=== PATIENT | female | born 1985 | race African-American/Black ===

== ENCOUNTER 2016-06-09 00:02 | Emergency (ER) | payer MEDICAID, OTHER ==
[~2016-06-09] VITALS: Ht 160 cm; Wt 91.5 kg
[~2016-06-09 00:02] MED LIST: HYDR25TA5 PO; TRAM50TA PO
[2016-06-09 00:03] VITALS: BP 170/100; TEMP 98.4; O2SAT 98
[2016-06-09] MEDS ORDERED: CYCLOBENZAPRINE HCL 10 MG TAB PO ONE (01:15)
[2016-06-09] MEDS ORDERED: NAPROXEN 500 MG TAB PO ONE (01:15)
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
[2016-06-09] MEDS ORDERED: CYCL1TAB29 PO (01:57)
[2016-06-09] MEDS ORDERED: DICL75TA PO (01:57)
== END 2016-06-09 02:22 | disposition home or self-care (01) ==
LOC: NEPB 00:02
DX: M54.2 Cervicalgia (principal); M54.9 Dorsalgia, unspecified; S63.501A Unspecified sprain of right wrist, initial encounter; I10 Essential (primary) hypertension; D64.9 Anemia, unspecified; F17.210 Nicotine dependence, cigarettes, uncomplicated; V49.88XA Car occupant (driver) (passenger) injured in other specified transport accidents, initial encounter; Y99.8 Other external cause status
CPT/HCPCS: 72040; 72100; 73110; 84703; 99283

== ENCOUNTER 2016-07-27 11:06 | Emergency (ER) | payer MEDICAID, OTHER ==
[~2016-07-27] VITALS: Ht 160 cm; Wt 90.5 kg
[~2016-07-27 11:06] MED LIST changes: +CYCL1TAB29 PO; +DICL75TA PO; -HYDR25TA5 PO; -TRAM50TA PO
[2016-07-27 11:09] VITALS: BP 178/102; PULSE 84; RESP 15; TEMP 98.2; O2SAT 98
[2016-07-27] MEDS ORDERED: CLON0.1T PO (12:05)
[2016-07-27] MEDS ORDERED: ERYTOIN10 LEFT EYE (12:05)
--- NOTE | 2016-07-27 12:06 | PD ---
HPI Chief Complaint: Eye Problems/Injury Time Seen by Provider: 12:00 Travel History International Travel<30 days: No Contact w/Intl Traveler<30days: No Traveled to known affect area: No History of Present Illness HPI Patient is a 31-year-old female presenting to emergency for evaluation of left eye redness and tearing. Patient states when she woke up this morning she noticed it. She denies any itching, foreign body sensation, visual changes, blurry vision. Patient reports that her godson had pink eye and she has been in contact with him. No other complaints at this time. She does report a history of hypertension, previously on clonidine but is out of her medication. PFSH Past Medical History Hx Anticoagulant Therapy: No Anemia: Yes Chemotherapy: No Cerebrovascular Accident: No Diabetes: No Diminished Hearing: No Hypertension: Yes Immune Disorder: No Respiratory: No Immunizations Current: Yes ?: Not : 8 Para: 4 Miscarriage: 3 : 1 Dilation and Curettage (D&C): Yes (MARCH 27, 2012, february 13) Past Surgical History Abdominal Surgery: Yes (LAPROSCOPIC) Cholecystectomy: Yes Pacemaker: No Social History Alcohol Use: No Tobacco Use: Yes Substance Use: No Allergies-Medications (Allergen,Severity, Reaction): Coded Allergies: No Known Allergies (Verified , 07/27/16) Reported Meds & Prescriptions Reported Meds & Active Scripts Active No Active Prescriptions or Reported Medications Review of Systems Except as stated in HPI: all other systems reviewed are Neg Eyes: Positive: Redness, Tearing, No: Blurred Vision, Photophobia, Foreign Body Sensation Physical Exam Narrative GENERAL: Well-nourished, well-developed patient. SKIN: Focused skin assessment warm/dry. HEAD: Normocephalic. EYES: No scleral icterus. Moderate injection to the left eye, extraocular movements are intact. Clear drainage noted. PERRLA NECK: Supple, trachea midline. No JVD or lymphadenopathy. CARDIOVASCULAR: Regular rate and rhythm without murmurs, gallops, or rubs. RESPIRATORY: Breath sounds equal bilaterally. No accessory muscle use. GASTROINTESTINAL: Abdomen soft, non-tender, nondistended. MUSCULOSKELETAL: No cyanosis, or edema. BACK: Nontender without obvious deformity. No CVA tenderness. Data Data Last Documented VS Vital Signs Date Time Temp Pulse Resp B/P Pulse Ox O2 Delivery O2 Flow Rate FiO2 07/27/16 11:09 98.2 84 15 178/102 98 [facility] Medical Decision Making Medical Screen Exam Complete: Yes Emergency Medical Condition: Yes Interpretation(s) Vital Signs Date Time Temp Pulse Resp B/P Pulse Ox O2 Delivery O2 Flow Rate FiO2 07/27/16 11:09 98.2 84 15 178/102 98 Differential Diagnosis Iritis versus viral conjunctivitis versus bacterial conjunctivitis versus other Narrative Course Patient is a 31-year-old female presenting to emergency department for evaluation of redness to her left eye that started this morning. Patient has had a sick contact with pink eye. She denies any visual changes. Additionally she states that she was diagnosed with hypertension and prescribed clonidine twice daily but she is out of her medication. Patient will be provided with a prescription for her previous dose of clonidine, she was advised to follow-up with her primary doctor. Additionally she'll be provided with a prescription for antibiotic ointment for her eye. She verbalized understanding of need for follow-up and blood pressure management. She was encouraged to return to emergency department for any new or worsening symptoms. Patient stable for discharge. Diagnosis Primary Impression: Conjunctivitis Qualified Code: H10.9 - Conjunctivitis of left eye, unspecified conjunctivitis type Additional Impression: Hypertension Qualified Code: I10 - Essential hypertension Referrals: Primary Care Physician 1 week Additional Instructions: Establish care with a primary doctor from ongoing health care as well as blood pressure management Return to emergency department for any new or worsening symptoms Take medications as directed May obtain [id number] artificial tears, keep in the refrigerator, the cooled drops may help alleviate irritation. Med/Other Pt SpecificInfo: Prescription(s) given Scripts Clonidine 0.1 Mg Tab0.1 Mg PO BID #60 TAB Ref 0 Prov:Delaney Collins 07/27/16 Erythromycin Opth Oint 5 Mg/Gm Oint1 Applic LEFT EYE QID #1 TUBE Ref 0 Prov:Delaney Collins 07/27/16 Disposition: 01 DISCHARGE HOME Condition: Stable Delaney Collins Jul 27, 2016 12:06
== END 2016-07-27 12:21 | disposition home or self-care (01) ==
LOC: NETRI 11:06
DX: H10.9 Unspecified conjunctivitis (principal); I10 Essential (primary) hypertension; Z72.0 Tobacco use
CPT/HCPCS: 99282

== ENCOUNTER 2017-03-05 18:13 | Emergency (ER) | payer MEDICAID ==
[~2017-03-05] VITALS: Ht 162.6 cm; Wt 75.0 kg
[~2017-03-05 18:13] MED LIST changes: +CLON0.1T PO; -CYCL1TAB29 PO; -DICL75TA PO; +ERYTOIN10 LEFT EYE
[2017-03-05 18:18] VITALS: BP 213/126; PULSE 87; RESP 12; TEMP 98.6; O2SAT 98
[2017-03-05 19:23] VITALS: BP 200/113; PULSE 76; RESP 18; O2SAT 97
[2017-03-05] MEDS ORDERED: amLODIPine BESYLATE 5 MG TAB PO ONE (19:30)
--- NOTE | 2017-03-05 19:30 | PD ---
HPI Chief Complaint: Hypertension Time Seen by Provider: 19:12 Travel History International Travel<30 days: No Contact w/Intl Traveler<30days: No Traveled to known affect area: No History of Present Illness HPI pt is 31 yr old female with HTN for over 2 years it started after gaining weight she reports , pt was at work felt headache and vision slightly blurred then she checked BP 187/126 pt reports . In ED pt denies CP no SOB no MOY no visual changes PFSH Past Medical History Hx Anticoagulant Therapy: No AAA: Yes Anemia: Yes Cardiovascular Problems: Yes (HTN) Chemotherapy: No Cerebrovascular Accident: No Diabetes: No Diminished Hearing: No Hypertension: Yes Immune Disorder: No Respiratory: No Immunizations Current: Yes Tetanus Vaccination: < 5 Years Influenza Vaccination: Yes ?: Unknown LMP: 03/01/17 only for 2 days when it is normally 3-4 : 8 Para: 4 Miscarriage: 3 : 1 Dilation and Curettage (D&C): Yes (MARCH 27, 2012, february 13) Past Surgical History Abdominal Surgery: Yes (LAPROSCOPIC) Cholecystectomy: Yes Pacemaker: No Social History Alcohol Use: No Tobacco Use: Yes Substance Use: No Allergies-Medications (Allergen,Severity, Reaction): Coded Allergies: No Known Allergies (Verified Adverse Reaction, Unknown, 03/05/17) Reported Meds & Prescriptions Reported Meds & Active Scripts Active Norvasc (Amlodipine Besylate) 5 Mg Tab 5 Mg PO DAILY Clonidine (Clonidine HCl) 0.1 Mg Tab 0.1 Mg PO BID Physical Exam Narrative GENERAL: non toxic in no distress alert Ox3 . SKIN: Warm and dry. HEAD: Atraumatic. Normocephalic. EYES: Pupils equal and round. No scleral icterus. No injection or drainage. ENT: No nasal bleeding or discharge. Mucous membranes pink and moist. NECK: Trachea midline. No JVD. CARDIOVASCULAR: Regular rate and rhythm. BP is 200/116 HR 80 RESPIRATORY: No accessory muscle use. Clear to auscultation. Breath sounds equal bilaterally. GASTROINTESTINAL: Abdomen soft, non-tender, nondistended. Hepatic and splenic margins not palpable. MUSCULOSKELETAL: Extremities without clubbing, cyanosis, or edema. No obvious deformities. NEUROLOGICAL: Awake and alert. No obvious cranial nerve deficits. Motor grossly within normal limits. Five out of 5 muscle strength in the arms and legs. Normal speech. PSYCHIATRIC: Appropriate mood and affect; insight and judgment normal. Data Data Last Documented VS Vital Signs Date Time Temp Pulse Resp B/P (MAP) Pulse Ox O2 Delivery O2 Flow Rate FiO2 03/05/17 20:46 79 175/83 (113) 03/05/17 19:23 18 97 Room Air 03/05/17 18:18 98.6 Orders Orders Amlodipine (Norvasc) (03/05/17 19:30) Clonidine (Catapres) (03/05/17 21:00) Ed Discharge Order (03/05/17 21:10) MDM Medical Decision Making Medical Screen Exam Complete: Yes Emergency Medical Condition: Yes Differential Diagnosis HTN VS STRESS RELATED ELEVATED BP Narrative Course PT HAS NORVASC 5 AND CLONIDINE 0.1 AND BP IS NOW 175 SBP MUCH IMPROVED WILL RX NORVASC 5 MG PO AND HOME BP MONITOR CUFF Diagnosis Primary Impression: Hypertension Additional Instructions: FOOLOW UP WITH PCP TO RECHECK THE BLOOD PRESSURE Scripts Amlodipine (Norvasc) 5 Mg Tab 5 MG PO DAILY for Blood Pressure Management, #30 TAB 0 Refills Prov: Joe Barriga MD 03/05/17 Disposition: 01 DISCHARGE HOME Condition: Good Joe Barriga MD Mar 05, 2017 19:29
[2017-03-05 20:46] VITALS: BP 175/83; PULSE 79
[2017-03-05] MEDS ORDERED: cloNIDine HCL 0.1 MG TAB PO ONE (21:00)
[2017-03-05] MEDS ORDERED: AMLO5 PO (21:16)
== END 2017-03-05 21:49 | disposition home or self-care (01) ==
LOC: NEPC 18:13
DX: I10 Essential (primary) hypertension (principal); D64.9 Anemia, unspecified; Z72.0 Tobacco use
CPT/HCPCS: 99283

== ENCOUNTER 2017-06-13 01:59 | Emergency (ER) | payer MEDICAID ==
[~2017-06-13] VITALS: Ht 160 cm; Wt 82.0 kg
[~2017-06-13 01:59] MED LIST changes: +AMOX400S3 PO; -CLON0.1T PO; -ERYTOIN10 LEFT EYE
[2017-06-13 02:03] VITALS: BP 186/117; PULSE 116; RESP 18; TEMP 99.2; O2SAT 98
--- NOTE | 2017-06-13 02:29 | PD ---
HPI Chief Complaint: GI Complaint Time Seen by Provider: 02:12 Travel History International Travel<30 days: No Contact w/Intl Traveler<30days: No Traveled to known affect area: No History of Present Illness HPI 32 y/o female presents with 2 episodes of nonbloody emesis and sore breasts. She states her last menstrual cycle was the second of this month. She states she took a home test and it was negative. She denies any diarrhea, fever, cough or congestion or other concurrent complaints. When I was reviewing her recent prior history here in the computer she states she has never been to [facility] and did not recently have an ear infection. She states her last visit was when she was here for high blood pressure. Quality is nonbloody. Severity is 2 episodes. PFSH Past Medical History Hx Anticoagulant Therapy: No AAA: Yes Anemia: Yes Cardiovascular Problems: Yes (HX: HTN) Chemotherapy: No Cerebrovascular Accident: No Diabetes: No Diminished Hearing: No Hypertension: Yes Immune Disorder: No Respiratory: No Immunizations Current: Yes Tetanus Vaccination: < 5 Years Influenza Vaccination: Yes ?: Unknown : 8 Para: 4 Miscarriage: 3 : 1 Dilation and Curettage (D&C): Yes (MARCH 27, 2012, february 13) Past Surgical History Abdominal Surgery: Yes (LAPROSCOPIC) Cholecystectomy: Yes Pacemaker: No Social History Alcohol Use: Yes (occ) Tobacco Use: Yes (04/29 PPD) Substance Use: No Allergies-Medications (Allergen,Severity, Reaction): Coded Allergies: No Known Allergies (Verified Adverse Reaction, Unknown, 06/13/17) Reported Meds & Prescriptions Reported Meds & Active Scripts Active Amoxicillin Liq (Amoxicillin) 400 Mg/5 Ml Susp 800 Mg PO BID Review of Systems Except as stated in HPI: all other systems reviewed are Neg Physical Exam Narrative General: No apparent distress, well appearing ENT: Posterior oropharyngx clear without exudate or erythema, external auditory canals are normal. Bilateral TM clear Neck: Neck is supple, no meningeal signs, trachea is midline Cardiovascular: Regular rate and rhythm Lungs: No increased respiratory effort noted, CTA bilaterally Abdomen: Soft, NT, ND, no rebound or guarding Back: No step-offs, midline spine nontender, no CVA tenderness Extremities: No edema, no pain with rom of all joints Neuro: Awake, motor and sensation grossly intact, normal speech Data Data Last Documented VS Vital Signs Date Time Temp Pulse Resp B/P (MAP) Pulse Ox O2 Delivery O2 Flow Rate FiO2 06/13/17 02:32 99.0 180/98 (125) 06/13/17 02:03 116 18 98 Orders Orders Ed Urine Pregnancytest Poc (06/13/17 02:22) Urinalysis - C+S If Indicated (06/13/17 02:22) Ondansetron Odt (Zofran Odt) (06/13/17 02:30) MDM Medical Decision Making Medical Screen Exam Complete: Yes Emergency Medical Condition: Yes Medical Record Reviewed: Yes (pmh confirmed) Differential Diagnosis , gastroenteritis, uti, hypertensive urgency.... Narrative Course will check test and ua and reevaluate pregancy test is negative, will dose with zofran and elderly caregiver her home blood pressure meds she has not taken in 2 days 233 shortly after I left the room patient walked out and would not stop and stated she needed to check her car, friend left with her, she declined to stay and talk further Diagnosis Primary Impression: Vomiting Qualified Codes: R11.2 - Nausea with vomiting, unspecified Additional Impression: Hypertension Qualified Codes: I10 - Essential (primary) hypertension Disposition: 07 AGAINST MEDICAL ADVICE Condition: Stable Flory Fraser MD Jun 13, 2017 02:28
[2017-06-13] MEDS ORDERED: ONDANSETRON ODT 4 MG TAB PO ONE (02:30)
[2017-06-13 02:32] VITALS: BP 180/98; TEMP 99
== END 2017-06-13 02:42 | disposition left against medical advice (07) ==
LOC: NEPC 01:59
DX: R11.2 Nausea with vomiting, unspecified (principal); D64.9 Anemia, unspecified; I10 Essential (primary) hypertension; F17.200 Nicotine dependence, unspecified, uncomplicated
CPT/HCPCS: 84703; 99281

== ENCOUNTER 2017-09-01 08:52 | Emergency (ER) | payer MEDICAID ==
[2017-09-01] MEDS: IBUPROFEN 800 MG TAB PO (09:54)
[2017-09-01] MEDS: amLODIPine BESYLATE 5 MG TAB PO (09:54)
[2017-09-01] MEDS: METHOCARBAMOL 500 MG TAB PO (09:55)
== END 2017-09-01 09:59 | disposition home or self-care (01) ==
LOC: NEPK 08:52
DX: M62.838 Other muscle spasm (principal); I10 Essential (primary) hypertension; G44.319 Acute post-traumatic headache, not intractable; F17.200 Nicotine dependence, unspecified, uncomplicated
CPT/HCPCS: 99283